=== PATIENT | female | born 1930 | race Caucasian/White ===

== ENCOUNTER 2016-09-27 11:44 | Emergency (ER) ==
[2016-09-27 11:56] VITALS: BP 147/77; TEMP 97.6; BMI 23.0
[2016-09-27] MEDS ORDERED: NORCO 5-325 PO STA (14:13)
--- NOTE | 2016-09-27 14:14 | ED.PDOC ---
General ED Provider: Dr. PATIENCE HERNDON JR Chief Complaint: Chest Wall Injury/Pain Stated Complaint: RIGHT LATERAL CHEST WALL PAIN NEAR BREAST AND AXILLA. WORSE LYING ON RIGHT SIDE.[End]97.6 83 16 95% 147/77 510 Time Seen by Physician: 14:07 Mode of Arrival: Walk-In Information Source: Patient Exam Limitations: No limitations Primary Care Provider[facility] Nursing and Triage Documentation Reviewed and Agree: No Review of Systems - Review Of Systems Constitutional: Reports: No symptoms Eyes: Reports: No symptoms Ears, Nose, Mouth, Throat: Reports: No symptoms Respiratory: Reports: No symptoms Cardiac: Reports: Chest pain (right chest wall) GI: Reports: No symptoms : Reports: No symptoms Musculoskeletal: Reports: No symptoms Skin: Reports: No symptoms Neurological: Reports: No symptoms Endocrine: Reports: No symptoms Hematologic/Lymphatic: Reports: No symptoms All Other Systems: Other Past Medical History - Past Medical History Endocrine: Reports: Dyslipidemia Cardiovascular: Reports: Hypertension Respiratory: Reports: None Hematological: Reports: None Gastrointestinal: Reports: None Genitourinary: Reports: None Neuro/Psych: Reports: None Musculoskeletal: Reports: None Cancer: Reports: None Last Menstrual Period: NA - Surgical History General Surgical History: Reports: Hysterectomy, Appendectomy, Other ( SMALL TUMORS REMOVED RIGHT AXILLA, CATARACT SURGERY BOTH EYES) - Family History Family History: Reports: Unknown - Social History Smoking Status: Never smoker Hx Substance Use: No Alcohol Screening: None Physical Exam - Physical Exam Appearance: Well-appearing Pain Distress: Mild Neck: Supple Respiratory: Airway patent GI/: Nontender, No masses, Bowel sounds normal Musculoskeletal: Normal strength, ROM intact, No edema, No calf tenderness ( tender right 456 ribs ant ax line breast tenderness no masses palpable) Skin: Warm, Dry, Normal color Neurological: Sensation intact, Motor intact, Reflexes intact, Cranial nerves intact, Alert, Oriented Critical Care Note - Critical Care Note Total Time (mins): 0 Course - Course Orders, Labs, Meds: Orders Category Date Time Status Hydrocodone Bit/Acetaminophen [[place] 5-325] MEDS 09/27/16 14:13 Discontinued 1 tab PO ONCE STA RIBS, UNI W PA CHEST MIN 3V Stat RADS 09/27/16 14:09 Completed Medications Discontinued Medications Generic Name Dose Route Start Last Admin Trade Name Freq PRN Reason Stop Dose Admin Acetaminophen/Hydrocodone Bitart 1 tab 09/27/16 14:13 09/27/16 16:01 [place] 5-325 PO 09/27/16 14:14 Not Given ONCE STA Vital Signs: Temp Pulse Resp BP Pulse Ox 09/27/16 11:45 97.6 F 83 16 147/77 H 95 Departure - Departure Time of Disposition: 16:04 Disposition: HOME SELF-CARE Discharge Problem: Chest wall pain, Rib pain on right side Instructions: Rib Contusion (ED) Condition: Good Pt referred to PMD for follow-up: Yes Additional Instructions: follow up PMD discuss repeat breast exam and consider mammography if not done recently may use [place] for pain recheck PMD one week sooner if worse Prescriptions: Hydrocodone Bit/Acetaminophen [[place] 5-325] 1 - 2 tab PO Q6HR PRN #12 tablet PRN Reason: pain Allergies/Adverse Reactions: Allergies butorphanol tartrate [From Stadol] Adverse Reaction (Severe, Verified 09/27/16 14:04) Dizziness dizziness and heaving Sulfa (Sulfonamide Antibiotics) Adverse Reaction (Severe, Verified 09/27/16 14: 04) Difficulty Breathing acetaminophen [From Lortab] Adverse Reaction (Intermediate, Verified 09/27/16 14 :04) Nausea atorvastatin calcium [From Lipitor] Adverse Reaction (Intermediate, Verified 14:04) Pain in upper back codeine Adverse Reaction (Intermediate, Verified 09/27/16 14:04) Nausea hydrocodone bitartrate [From Lortab] Adverse Reaction (Intermediate, Verified 14:04) Nausea Penicillins Adverse Reaction (Intermediate, Verified 09/27/16 14:04) Hives Home Medications: Ambulatory Orders Amlodipine Besylate [Norvasc] 10 mg PO DAILY 09/27/16 Ascorbic Acid [Vitamin C] 1,000 mg PO DAILY 09/27/16 Cholecalciferol (Vitamin D3) [Vitamin D3] 1,000 unit PO DAILY 09/27/16 Cyanocobalamin (Vitamin B-12) [Cyanocobalamin Injection] 1,000 mcg IJ MONTHLY Cyanocobalamin (Vitamin B-12) [Vitamin B-12] 500 mcg SL DAILY 09/27/16 Hydrocodone Bit/Acetaminophen [[place] 5-325] 1 - 2 tab PO Q6HR PRN #12 tablet Iron Fum & Ag/C/B12/FA/Ca/Succ [Multigen Plus Caplet] 1 tab PO DAILY 09/27/16 Losartan Potassium 100 mg PO DAILY 09/27/16 Simvastatin [Zocor] 20 mg PO DAILY 09/27/16 Zinc 50 mg PO DAILY 09/27/16
--- NOTE | 2016-09-27 15:23 | DI ---
EXAM: Frontal chest, right ribs three views HISTORY: Rib tenderness, no history of injury or mass. FINDINGS: Since 05/26/2014, heart size remains within normal limits. There is mild to moderate aor tic atherosclerosis. Lungs are free of infiltrate. No vascular congestion, pneumothorax or pleural fluid. Moderate scoliosis convex to the right centered at the thoracolumbar junction. The ribs re veal no displaced fracture or bony erosion. IMPRESSION: 1. No rib abnormality identified. 2. Lungs are clear.
== END 2016-09-27 16:07 | disposition home or self-care (01) ==
LOC: ED 11:44
DX: R07.89 Other chest pain (principal); R07.81 Pleurodynia
CPT/HCPCS: 99283

== ENCOUNTER 2016-10-11 08:20 | Outpatient (CLI) ==
[2016-10-11 12:45] LABS: BASOPHILS # (AUTO) 0.1 K/uL (0-0.2); BASOPHILS % (AUTO) 0.8 % (0.0-3.0); EOSINOPHILS # (AUTO) 0.2 K/ul (0.0-0.7); HEMATOCRIT 35.2 % (37.0-47.0); HEMOGLOBIN 11.5 g/dl (12.0-16.0); IMMATURE GRANULOCYTE % (AUTO) 0.4 % (0.0-5.0); LYMPHOCYTES # (AUTO) 2.2 K/uL (0.60-3.4); MEAN CORPUSCULAR HEMOGLOBIN 32.5 pg (27.0-31.0); MEAN CORPUSCULAR HGB CONC 32.7 (31.8-35.4); MEAN CORPUSCULAR VOLUME 99.4 fl (81.0-99.0); MONOCYTES # (AUTO) 0.8 K/uL (0.4-2.0); MONOCYTES % (AUTO) 8.5 (0-10); NEUTROPHILS % (AUTO) 64.3; PLATELET COUNT 316 10^3/uL (140-440); RED BLOOD COUNT 3.54 10^6/ul (4.20-5.40); WHITE BLOOD COUNT 9.31 K/ul (4.6-10.2)
[2016-10-11 12:49] LABS: BILIRUBIN,URINE Negative (NEGATIVE); KETONES,URINE Negative (NEGATIVE); LEUKOCYTE ESTERASE ,URINE 1+ (NEGATIVE); NITRITE,URINE Negative (NEGATIVE); PROTEIN,URINE Negative (NEGATIVE); URINE, BLOOD Negative (NEGATIVE)
[2016-10-11 12:52] LABS: ADD URINE MICROSCOPIC YES; BACTERIA,URINE TRACE (NOT PRESENT)
[2016-10-11 12:57] LABS: ALBUMIN 4.5 g/dL (3.4-5.0); ALBUMIN/GLOBULIN RATIO 1.15; ANION GAP 19.1; BILIRUBIN,TOTAL 0.67 mg/dL (0.00-1.20); BUN/CREATININE RATIO 23.33; CALCIUM 10.2 mg/dL (8.2-10.2); CHOL/HDL RATIO 3.7 (4.5-5.5); CREATININE 1.8 mg/dL (0.60-1.30); POTASSIUM 4.1 mmol/L (3.5-5.10); TOTAL PROTEIN 8.4 g/dL (5.8-8.1)
== END 2016-10-11 08:21 | disposition home or self-care (01) ==
LOC: LAB 08:20
PROVIDERS: ATTEND General Practice
DX: D53.1 Other megaloblastic anemias, not elsewhere classified (principal); E78.5 Hyperlipidemia, unspecified; I10 Essential (primary) hypertension; K21.9 Gastro-esophageal reflux disease without esophagitis; N18.4 Chronic kidney disease, stage 4 (severe); Z79.899 Other long term (current) drug therapy
CPT/HCPCS: 36415; 80053; 80061; 81001; 85025

== ENCOUNTER 2017-01-21 10:23 | Outpatient (CLI) | payer OTHER ==
[2017-01-21 10:38] LABS: BASOPHILS # (AUTO) 0.1 K/uL (0-0.2); BASOPHILS % (AUTO) 0.8 % (0.0-3.0); EOSINOPHILS # (AUTO) 0.2 K/ul (0.0-0.7); EOSINOPHILS % (AUTO) 2.2 % (0.0-7.0); HEMATOCRIT 31.1 % (37.0-47.0); HEMOGLOBIN 10.5 g/dl (12.0-16.0); IMMATURE GRANULOCYTE % (AUTO) 0.4 % (0.0-5.0); LYMPHOCYTES # (AUTO) 1.8 K/uL (0.60-3.4); LYMPHOCYTES % (AUTO) 21.6 (10.0-50.0); MEAN CORPUSCULAR HEMOGLOBIN 33.2 pg (27.0-31.0); MEAN CORPUSCULAR HGB CONC 33.8 (31.8-35.4); MEAN CORPUSCULAR VOLUME 98.4 fl (81.0-99.0); MONOCYTES # (AUTO) 0.9 K/uL (0.4-2.0); MONOCYTES % (AUTO) 11.1 (0-10); NEUTROPHILS # (AUTO) 5.3 K/ul (2.0-6.9); NEUTROPHILS % (AUTO) 63.9; PLATELET COUNT 272 10^3/uL (140-440); RED BLOOD COUNT 3.16 10^6/ul (4.20-5.40)
[2017-01-21 10:57] LABS: ALBUMIN 4.3 g/dL (3.4-5.0); ALBUMIN/GLOBULIN RATIO 1.23; ANION GAP 13.3; BILIRUBIN,TOTAL 0.43 mg/dL (0.00-1.20); BUN/CREATININE RATIO 22.01; CALCIUM 9.7 mg/dL (8.2-10.2); CREATININE 1.59 mg/dL (0.60-1.30); POTASSIUM 4.3 mmol/L (3.5-5.10); TOTAL PROTEIN 7.8 g/dL (5.8-8.1)
--- NOTE | 2017-01-21 11:09 | DI ---
EXAM: Chest two view, frontal and lateral views. HISTORY: Shortness of breath. COMPARISON: 09/27/2016, 10/09/2013. FINDINGS: The heart size is normal. Atherosclerotic calcifications are present near There is no pu lmonary vascular congestion. The lungs are clear save for calcified granulomatous changes. No pleu ral effusion or pneumothorax is seen. No acute osseous abnormality identified. Since the prior venkat dy, there has been no significant interval change. IMPRESSION: No acute cardiopulmonary process.
== END 2017-01-21 10:24 | disposition home or self-care (01) ==
LOC: RAD 10:23
PROVIDERS: ATTEND General Practice
DX: R06.02 Shortness of breath (principal); D53.1 Other megaloblastic anemias, not elsewhere classified; N18.4 Chronic kidney disease, stage 4 (severe)
CPT/HCPCS: 36415; 80053; 83880; 85025

== ENCOUNTER 2017-02-07 11:57 | Outpatient (CLI) ==
[2017-02-07 13:33] LABS: BILIRUBIN,URINE Negative (NEGATIVE); KETONES,URINE Negative (NEGATIVE); LEUKOCYTE ESTERASE ,URINE 1+ (NEGATIVE); NITRITE,URINE Negative (NEGATIVE); PROTEIN,URINE Negative (NEGATIVE); URINE, BLOOD Negative (NEGATIVE)
[2017-02-07 13:35] LABS: ADD URINE MICROSCOPIC YES
[2017-02-07 13:37] LABS: BACTERIA,URINE 1+ (NOT PRESENT)
[2017-02-07 13:40] LABS: BASOPHILS # (AUTO) 0.1 K/uL (0-0.2); BASOPHILS % (AUTO) 0.5 % (0.0-3.0); EOSINOPHILS # (AUTO) 0.2 K/ul (0.0-0.7); EOSINOPHILS % (AUTO) 1.9 % (0.0-7.0); HEMATOCRIT 33.9 % (37.0-47.0); HEMOGLOBIN 11.1 g/dl (12.0-16.0); IMMATURE GRANULOCYTE % (AUTO) 0.4 % (0.0-5.0); LYMPHOCYTES % (AUTO) 17.9 (10.0-50.0); MEAN CORPUSCULAR HEMOGLOBIN 32.6 pg (27.0-31.0); MEAN CORPUSCULAR HGB CONC 32.7 (31.8-35.4); MEAN CORPUSCULAR VOLUME 99.7 fl (81.0-99.0); MONOCYTES # (AUTO) 0.7 K/uL (0.4-2.0); MONOCYTES % (AUTO) 6.7 (0-10); NEUTROPHILS % (AUTO) 72.6; PLATELET COUNT 338 10^3/uL (140-440); WHITE BLOOD COUNT 10.98 K/ul (4.6-10.2)
[2017-02-07 13:57] LABS: ALBUMIN 4.4 g/dL (3.4-5.0); CALCIUM 9.8 mg/dL (8.2-10.2)
[2017-02-07 13:58] LABS: ALBUMIN/GLOBULIN RATIO 1.16; BILIRUBIN,TOTAL 0.46 mg/dL (0.00-1.20); CHOL/HDL RATIO 3.3 (4.5-5.5); CREATININE 2.09 mg/dL (0.60-1.30); TOTAL PROTEIN 8.2 g/dL (5.8-8.1)
== END 2017-02-07 11:58 | disposition home or self-care (01) ==
LOC: LAB 11:57
PROVIDERS: ATTEND General Practice
DX: E78.5 Hyperlipidemia, unspecified (principal); I10 Essential (primary) hypertension; N18.4 Chronic kidney disease, stage 4 (severe); K21.9 Gastro-esophageal reflux disease without esophagitis; D53.1 Other megaloblastic anemias, not elsewhere classified; Z79.899 Other long term (current) drug therapy
CPT/HCPCS: 36415; 80053; 80061; 81001; 85025; 87086

== ENCOUNTER 2017-04-26 08:43 | Outpatient (CLI) ==
[2017-04-26 09:25] LABS: BILIRUBIN,URINE Negative (NEGATIVE); KETONES,URINE Negative (NEGATIVE); LEUKOCYTE ESTERASE ,URINE 1+ (NEGATIVE); MEAN CORPUSCULAR HEMOGLOBIN 32.4 pg (27.0-31.0); MEAN CORPUSCULAR HGB CONC 33.3 (31.8-35.4); MEAN CORPUSCULAR VOLUME 97.3 fl (81.0-99.0); NITRITE,URINE Negative (NEGATIVE); PROTEIN,URINE Negative (NEGATIVE); RED BLOOD COUNT 3.39 10^6/ul (4.20-5.40); URINE, BLOOD Negative (NEGATIVE); WHITE BLOOD COUNT 9.65 K/ul (4.6-10.2)
[2017-04-26 09:43] LABS: ADD URINE MICROSCOPIC YES
[2017-04-26 10:07] LABS: ALBUMIN 4.4 g/dL (3.4-5.0); ALBUMIN/GLOBULIN RATIO 1.38; ANION GAP 15.3; BILIRUBIN,TOTAL 0.45 mg/dL (0.00-1.20); BUN/CREATININE RATIO 25.5; CALCIUM 9.8 mg/dL (8.2-10.2); CREATININE 1.49 mg/dL (0.60-1.30); MAGNESIUM 2.6 mg/dL (1.7-2.2); PHOSPHORUS 4.5 mg/dL (2.8-4.1); POTASSIUM 4.3 mmol/L (3.5-5.10); TOTAL PROTEIN 7.6 g/dL (5.8-8.1); URIC ACID 7.9 mg/dL (2.4-6.0)
== END 2017-04-26 08:44 ==
LOC: LAB 08:43
PROVIDERS: ATTEND Nurse Practitioner
DX: N18.3 Chronic kidney disease, stage 3 (moderate) (principal); E55.9 Vitamin D deficiency, unspecified
CPT/HCPCS: 36415; 80053; 81001; 82306; 82570; 83735; 83970; 84100; 84156; 84550; 85027

== ENCOUNTER 2017-05-10 12:38 | Outpatient (CLI) ==
[2017-05-10 12:54] LABS: BASOPHILS # (AUTO) 0.1 K/uL (0-0.2); BASOPHILS % (AUTO) 1.2 % (0.0-3.0); EOSINOPHILS # (AUTO) 0.3 K/ul (0.0-0.7); EOSINOPHILS % (AUTO) 3.3 % (0.0-7.0); HEMATOCRIT 35.3 % (37.0-47.0); HEMOGLOBIN 11.6 g/dl (12.0-16.0); IMMATURE GRANULOCYTE % (AUTO) 0.5 % (0.0-5.0); LYMPHOCYTES # (AUTO) 2.4 K/uL (0.60-3.4); LYMPHOCYTES % (AUTO) 25.2 (10.0-50.0); MEAN CORPUSCULAR HEMOGLOBIN 33.1 pg (27.0-31.0); MEAN CORPUSCULAR HGB CONC 32.9 (31.8-35.4); MEAN CORPUSCULAR VOLUME 100.9 fl (81.0-99.0); MONOCYTES # (AUTO) 0.9 K/uL (0.4-2.0); NEUTROPHILS # (AUTO) 5.8 K/ul (2.0-6.9); NEUTROPHILS % (AUTO) 60.8; PLATELET COUNT 317 10^3/uL (140-440); WHITE BLOOD COUNT 9.62 K/ul (4.6-10.2)
[2017-05-10 12:58] LABS: BILIRUBIN,URINE Negative (NEGATIVE); KETONES,URINE Negative (NEGATIVE); LEUKOCYTE ESTERASE ,URINE Trace (NEGATIVE); NITRITE,URINE Negative (NEGATIVE); PROTEIN,URINE Negative (NEGATIVE); URINE, BLOOD Negative (NEGATIVE)
[2017-05-10 13:01] LABS: ADD URINE MICROSCOPIC YES
[2017-05-10 13:11] LABS: ALBUMIN 4.4 g/dL (3.4-5.0); ALBUMIN/GLOBULIN RATIO 1.22; ANION GAP 21.5; BILIRUBIN,TOTAL 0.42 mg/dL (0.00-1.20); BUN/CREATININE RATIO 27.74; CALCIUM 9.9 mg/dL (8.2-10.2); CHOL/HDL RATIO 3.8 (4.5-5.5); CREATININE 1.55 mg/dL (0.60-1.30); POTASSIUM 4.5 mmol/L (3.5-5.10)
== END 2017-05-10 12:39 | disposition home or self-care (01) ==
LOC: LAB 12:38
PROVIDERS: ATTEND General Practice
DX: I12.9 Hypertensive chronic kidney disease with stage 1 through stage 4 chronic kidney disease, or unspecified chronic kidney disease (principal); N18.4 Chronic kidney disease, stage 4 (severe); D63.1 Anemia in chronic kidney disease; E78.5 Hyperlipidemia, unspecified; K21.9 Gastro-esophageal reflux disease without esophagitis; Z79.899 Other long term (current) drug therapy
CPT/HCPCS: 36415; 80053; 80061; 81001; 85025

== ENCOUNTER 2017-11-20 12:13 | Outpatient (CLI) | END 2017-11-20 12:14 | disposition home or self-care (01) | LOC: FCC-LAB 12:13 | PROVIDERS: ATTEND General Practice | DX: N18.4 Chronic kidney disease, stage 4 (severe) (principal); I10 Essential (primary) hypertension; E78.5 Hyperlipidemia, unspecified; D53.1 Other megaloblastic anemias, not elsewhere classified; Z79.899 Other long term (current) drug therapy | CPT/HCPCS: 36415; 80053; 80061; 81001; 85025; 87086 ==

== ENCOUNTER 2017-11-28 11:58 | Outpatient (CLI) ==
--- NOTE | 2017-11-28 12:50 | DI ---
EXAM: Chest, 2 views. HISTORY: Cough COMPARISON: 01/21/2017 FINDING/IMPRESSION: Cardiomediastinal countours appear stable. There is no focal pulmonary consolid ation. No pleural effusion or pneumothorax. No acute cardiopulmonary process.
== END 2017-11-28 11:59 | disposition home or self-care (01) ==
LOC: RAD 11:58
PROVIDERS: ATTEND General Practice
DX: R05 Cough (principal)

== ENCOUNTER 2018-01-23 08:09 | Outpatient (CLI) | payer OTHER | END 2018-01-23 08:10 | disposition home or self-care (01) | LOC: LAB 08:09 | PROVIDERS: ATTEND General Practice | DX: E78.5 Hyperlipidemia, unspecified (principal); I10 Essential (primary) hypertension; N18.4 Chronic kidney disease, stage 4 (severe); R05 Cough; Z79.899 Other long term (current) drug therapy | CPT/HCPCS: 36415; 80053; 80061; 81001; 85025; 87086 ==

== ENCOUNTER 2018-04-21 08:04 | Outpatient (CLI) | END 2018-04-21 08:05 | disposition home or self-care (01) | LOC: LAB 08:04 | PROVIDERS: ATTEND General Practice | DX: I10 Essential (primary) hypertension (principal); N18.4 Chronic kidney disease, stage 4 (severe); E78.5 Hyperlipidemia, unspecified; K21.9 Gastro-esophageal reflux disease without esophagitis; Z79.899 Other long term (current) drug therapy | CPT/HCPCS: 36415; 80053; 80061; 81001; 85025 ==

== ENCOUNTER 2018-05-10 16:14 | Emergency (ER) | payer OTHER ==
[2018-05-10 16:17] VITALS: BMI 23.0
[2018-05-10 16:26] VITALS: TEMP 98.1
--- NOTE | 2018-05-10 17:27 | ED.PDOC ---
General ED Provider: Dr. CHRISTINA WEAVER Chief Complaint: Extremity Pain/Injury Stated Complaint: Patient a pleasant 87 year old female who is very hard of hearing. Come to the ER with complaints of bilateral leg pain that started today. Pain is worse with movement. Denies any trauma. No prior history of PVD, PE, DVT or smoking. Currenly on cholesteral medications which was decreased from 20 to 10 ( simvastatin) they are not sure why. Took tylenol today . Time Seen by Physician: 16:30 Mode of Arrival: Wheelchair Information Source: Patient, Family Primary Care [facility] Nursing and Triage Documentation Reviewed and Agree: Yes Does patient meet sepsis criteria?: No System Inflammatory Response Syndrome: Not Applicable Sepsis Protocol: For patient's 13 years and over: Temp is 96.8 and below OR 101 and greater Pulse >90 BPM Resp >20/minute Acutely Altered Mental Status Are patient's symptoms suggestive of a new infection, such as: -Pneumonia -Skin, Soft Tissue -Endocarditis -UTI -Bone, Joint Infection -Implantable Device -Acute Abdominal Infection -Wound Infection -Meningitis -Blood Stream Catheter Infection -Unknown Review of Systems - Review Of Systems Constitutional: Reports: No symptoms Eyes: Reports: No symptoms Ears, Nose, Mouth, Throat: Reports: No symptoms (except hearing loss ) Respiratory: Reports: No symptoms Cardiac: Reports: No symptoms GI: Reports: No symptoms : Reports: No symptoms Musculoskeletal: Reports: Muscle pain, Muscle stiffness Skin: Reports: No symptoms Neurological: Reports: No symptoms Endocrine: Reports: No symptoms Hematologic/Lymphatic: Reports: No symptoms All Other Systems: Reviewed and Negative Past Medical History - Past Medical History Endocrine: Reports: Dyslipidemia Cardiovascular: Reports: Hypertension Respiratory: Reports: None Hematological: Reports: None Gastrointestinal: Reports: None Genitourinary: Reports: None Neuro/Psych: Reports: None Musculoskeletal: Reports: None Cancer: Reports: None Last Menstrual Period: na - Surgical History General Surgical History: Reports: Hysterectomy, Appendectomy, Other ( SMALL TUMORS REMOVED RIGHT AXILLA, CATARACT SURGERY BOTH EYES) - Family History Family History: Reports: Unknown - Social History Smoking Status: Never smoker Hx Substance Use: No Alcohol Screening: None - Immunizations Tetanus Shot up to Date: Yes Physical Exam - Physical Exam Appearance: Well-appearing, No pain distress, Well-nourished Eyes: RAJINDER, EOMI, Conjunctiva clear ENT: Ears normal, Nose normal, Oropharynx normal Respiratory: Airway patent, Breath sounds clear, Breath sounds equal, Respirations nonlabored Cardiovascular: RRR, Pulses normal, No rub, No murmur GI/: Soft, Nontender, No masses, Bowel sounds normal, No Organomegaly Musculoskeletal: Normal strength, ROM intact, No edema, No calf tenderness Skin: Warm, Dry, Normal color Neurological: Sensation intact, Motor intact, Reflexes intact, Cranial nerves intact, Alert, Oriented Psychiatric: Anxious Critical Care Note - Critical Care Note Total Time (mins): 0 Course - Course Hematology/Chemistry: 05/10/18 16:38 05/10/18 16:38 Orders, Labs, Meds: Lab Review 05/10/18 05/10/18 16:38 16:38 WBC 9.54 RBC 3.40 L Hgb 11.1 L Hct 33.7 L MCV 99.1 H MCH 32.6 H MCHC 32.9 RDW Coeff of Emily 12.3 Plt Count 301 Immature Gran % (Auto) 0.5 Neut % (Auto) 61.8 Lymph % (Auto) 24.9 Nance % (Auto) 8.9 Eos % (Auto) 2.9 Baso % (Auto) 1.0 Immature Gran # (Auto) 0.1 Neut # (Auto) 5.9 Lymph # (Auto) 2.4 Nance # (Auto) 0.9 Eos # (Auto) 0.3 Baso # (Auto) 0.1 Sodium 140 Potassium 4.0 Chloride 105 Carbon Dioxide 25 Anion Gap 14.0 BUN 35 H Creatinine 1.40 H Estimated GFR (MDRD) 36.00 BUN/Creatinine Ratio 25.00 Glucose 127 H Calcium 9.8 Magnesium 2.6 H Total Bilirubin 0.5 AST 20 ALT 17 Alkaline Phosphatase 61 Total Creatine Kinase 39 Total Protein 7.6 Albumin 4.0 Globulin 3.6 Albumin/Globulin Ratio 1.11 Orders Category Date Time Status Vital signs [ED VITAL SIGNS] .ONCE EMERGENCY 05/10/18 17:25 Active CBC W/ AUTO DIFF Stat LAB 05/10/18 16:38 Completed COMPREHENSIVE METABOLIC PANEL Stat LAB 05/10/18 16:38 Completed CREATINE KINASE Stat LAB 05/10/18 16:38 Completed MAGNESIUM Stat LAB 05/10/18 16:38 Completed Vital Signs: Temp Pulse Resp BP Pulse Ox 05/10/18 17:39 85 18 162/72 H 96 09/01/18 16:20 98.1 F 98 H 16 173/79 H 98 Departure - Departure Time of Disposition: 17:28 Disposition: HOME SELF-CARE Discharge Problem: Bilateral leg cramps Instructions: Leg Cramps (ED) Condition: Stable Pt referred to PMD for follow-up: Yes IPMP verified?: No Additional Instructions: My use Epsom salts to legs Follow up with PCP in 3-5 days Stop Simvastatin until you see your PCP Continue to take Tylenol 500mg every 6 hours as needed for pain Allergies/Adverse Reactions: Allergies butorphanol tartrate [From Stadol] Adverse Reaction (Severe, Verified 05/10/18 16:29) Dizziness dizziness and heaving Sulfa (Sulfonamide Antibiotics) Adverse Reaction (Severe, Verified 05/10/18 16: 29) Difficulty Breathing acetaminophen [From Lortab] Adverse Reaction (Intermediate, Verified 05/10/18 16 :29) Nausea atorvastatin calcium [From Lipitor] Adverse Reaction (Intermediate, Verified 09/26 16:29) Pain in upper back codeine Adverse Reaction (Intermediate, Verified 05/10/18 16:29) Nausea hydrocodone bitartrate [From Lortab] Adverse Reaction (Intermediate, Verified 16:29) Nausea Penicillins Adverse Reaction (Intermediate, Verified 05/10/18 16:29) Hives Home Medications: Ambulatory Orders Amlodipine Besylate [Norvasc] 10 mg PO DAILY 09/27/16 Ascorbic Acid [Vitamin C] 1,000 mg PO DAILY 09/27/16 Cholecalciferol (Vitamin D3) [Vitamin D3] 1,000 unit PO DAILY 09/27/16 Cyanocobalamin (Vitamin B-12) [Cyanocobalamin Injection] 1,000 mcg IJ MONTHLY Cyanocobalamin (Vitamin B-12) [Vitamin B-12] 500 mcg SL DAILY 09/27/16 Hydrocodone Bit/Acetaminophen [[place] 5-325] 1 - 2 tab PO Q6HR PRN #12 tablet Iron Fum & Ag/C/B12/FA/Ca/Succ [Multigen Plus Caplet] 1 tab PO DAILY 09/27/16 Losartan Potassium 100 mg PO DAILY 09/27/16 Zinc 50 mg PO DAILY 09/27/16 Disposition Discussed With: Patient, Family
[2018-05-10 17:40] VITALS: BP 162/72
== END 2018-05-10 17:46 | disposition home or self-care (01) ==
LOC: ED 16:14
DX: R25.2 Cramp and spasm (principal); M79.605 Pain in left leg; M79.604 Pain in right leg
CPT/HCPCS: 36415; 80053; 82550; 83735; 85025; 99283

== ENCOUNTER 2018-10-10 11:50 | Outpatient (CLI) | payer OTHER ==
--- NOTE | 2018-10-10 12:52 | DI ---
Exam: Three views of the right shoulder. Comparison: Chest x-ray performed 11/28/2017. Reason for exam: Pain in shoulder. FINDINGS: No acute fracture or malalignment. The joint spaces appear well maintained. No unexplain ed calcific soft tissue density or radiopaque retained foreign body. The right clavicle appears inta ct. Impression: No acute fracture or malalignment in the right shoulder.
--- NOTE | 2018-10-10 12:53 | DI ---
Exam: Three views of the left shoulder. Comparison: Chest x-ray performed 11/28/2017. Reason for exam: Pain in shoulder. FINDINGS: No acute fracture or malalignment. The humeral head articulates to the bony glenoid. The clavicle appears intact. Impression: No acute fracture or malalignment is seen in the left shoulder.
== END 2018-10-10 11:51 | disposition home or self-care (01) ==
LOC: RHC-LAB 11:50
PROVIDERS: ATTEND General Practice
DX: M25.512 Pain in left shoulder (principal); M25.511 Pain in right shoulder; E78.5 Hyperlipidemia, unspecified; I10 Essential (primary) hypertension; N18.4 Chronic kidney disease, stage 4 (severe)
CPT/HCPCS: 36415; 85025; 85651; 86140

== ENCOUNTER 2018-10-17 12:33 | Outpatient (CLI) | payer OTHER | END 2018-10-17 12:34 | disposition home or self-care (01) | LOC: RHC-LAB 12:33 | PROVIDERS: ATTEND General Practice | DX: M25.519 Pain in unspecified shoulder (principal); R79.82 Elevated C-reactive protein (CRP); R70.0 Elevated erythrocyte sedimentation rate | CPT/HCPCS: 36415; 86200; 86430 ==

== ENCOUNTER 2018-11-14 13:50 | Outpatient (CLI) ==
--- NOTE | 2018-11-14 15:06 | DI ---
EXAM: Three views of the right shoulder HISTORY: Pain in the right shoulder. COMPARISON: Right shoulder x-ray 10/10/2018 FINDINGS: There is no cortical irregularity or displaced fracture of the right shoulder. 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 The glenohumeral joint is normal. The adjac ent osseous structures and soft tissues are normal. IMPRESSION: Minimal degenerative change of the acromioclavicular joint with no displaced fracture or dislocation.
--- NOTE | 2018-11-14 15:09 | DI ---
EXAM: Two views of the right humerus HISTORY: Right shoulder pain. COMPARISON: Same day right shoulder x-rays and right shoulder x-ray 10/10/2018 FINDINGS: There is no cortical irregularity or displaced fracture of the right humerus. There is no lytic or blastic lesion. The joint spaces are maintained. The soft tissues are normal. IMPRESSION: No acute abnormality or displaced fracture of the right humerus.
== END 2018-11-14 13:51 | disposition home or self-care (01) ==
LOC: RHC-LAB 13:50
PROVIDERS: ATTEND General Practice
DX: Z00.00 Encounter for general adult medical examination without abnormal findings (principal); E78.5 Hyperlipidemia, unspecified; I10 Essential (primary) hypertension; N18.4 Chronic kidney disease, stage 4 (severe); Z79.899 Other long term (current) drug therapy; M25.511 Pain in right shoulder; Z91.81 History of falling
CPT/HCPCS: 36415; 80053; 80061; 81001; 84145; 85025; 85651

== ENCOUNTER 2019-01-22 09:23 | Outpatient (CLI) | END 2019-01-22 09:24 | disposition home or self-care (01) | LOC: LAB 09:23 | PROVIDERS: ATTEND General Practice | DX: R70.0 Elevated erythrocyte sedimentation rate (principal); R73.09 Other abnormal glucose; E78.5 Hyperlipidemia, unspecified; N18.4 Chronic kidney disease, stage 4 (severe); I10 Essential (primary) hypertension; R79.82 Elevated C-reactive protein (CRP); M79.601 Pain in right arm; M75.51 Bursitis of right shoulder; M75.50 Bursitis of unspecified shoulder; Z79.899 Other long term (current) drug therapy | CPT/HCPCS: 36415; 80053; 80061; 81001; 83036; 85025; 85651; 86038; 87086 ==

== ENCOUNTER 2019-02-04 12:42 | Outpatient (CLI) | END 2019-02-04 12:43 | disposition home or self-care (01) | LOC: RHC-LAB 12:42 | PROVIDERS: ATTEND General Practice | DX: R31.9 Hematuria, unspecified (principal) | CPT/HCPCS: 81001; 87086 ==